=== PATIENT | female | born 1980 | race Hispanic/Latino ===

== ENCOUNTER 2019-09-07 18:15 | Emergency (ER) | payer BC, OTHER ==
[2019-09-07 19:15] LABS: Basophils % 0.2 % (0-1.3); Lymphocytes % 20.1 % (15.3-44.8); MPV 7.3 fL (7.6-11.3); RBC Red Blood Cell Count 3.97 M/uL (3.86-4.86)
[2019-09-07 19:22] LABS: Urine Bacteria 20-50 /HPF (<20); Urine Culture Reflex Order REFLEXED; Urine Mucus 3+ /HPF (NONE SEEN); Urine RBC 20-50 /HPF (NONE SEEN)
[2019-09-07 19:36] LABS: Potassium 3.3 mmol/L (3.5-5.1)
--- NOTE | 2019-09-07 20:49 | RAD REPORT ---
EXAM DESCRIPTION: CT - Abdomen Pelvis W Contrast - 09/07/2019 8:33 pm CLINICAL HISTORY: Abdominal pain/right flank pain COMPARISON: none. TECHNIQUE: Computed axial tomography of the abdomen pelvis was obtained. 100 cc Isovue-300 was admin istered intravenously. Oral contrast was not requested which limits evaluation of bowel. All CT scans are performed using dose optimization technique as appropriate and may include automated exposure control or mA/KV adjustment according to patient size. FINDINGS: Several small low-density areas are present within the right kidney extending to the perip jarod. An additional 2 centimeter low to intermediate density area is present within the midpole of th e right kidney. No hydronephrosis The liver, spleen, pancreas, adrenal and left kidney appear unremarkable. There is no evidence of diverticulitis. IMPRESSION: These findings likely indicate moderate right pyelonephritis. The 2 centimeter abnormality within the right kidney likely additional pyelonephritis less likely a m ass. Followup ultrasound in 1 month is recommended for re-evaluation
[2019-09-07 21:00] LABS: Urine Blood 3+ (NEG); Urine Glucose NEGATIVE (NEG); Urine Protein 1+ (NEG); Urine Specific Gravity 1.025 (1.005-1.030); Urine pH 5.5 (5.0-7.0)
--- NOTE | 2019-09-07 21:04 | ER ---
Nurse's Notes [facility] Name: Laura Pineda Age: 39 yrs Sex: Female : 1980 Arrival Date: 09/07/2019 Time: 18:18 Bed 19 Private MD: Diagnosis: Acute tubulo-interstitial nephritis Presentation: 09/06 18:27 Chief complaint: Intermittent right flank pain, difficulty urinating, nausea, and fever hb x 1 week. TMAX 101.8. Coronavirus screen: Proceed with normal triage. Ebola Screen: No symptoms or risks identified at this time. Initial Sepsis Screen: Does the patient meet any 2 criteria? HR > 90 bpm. Risk Assessment: Do you want to hurt yourself or someone else? Patient reports no desire to harm self or others. Onset of symptoms was September 01, 2019. Care prior to arrival: Medication(s) given: Tylenol, at 1630. 18:27 Method Of Arrival: Ambulatory hb 18:27 Acuity: FALLON 3 hb 21:41 Initial Sepsis Screen: Does the patient have a suspected source of infection? Yes: ll1 Dysuria/Frequency/Urgency/UTI. 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 - Social history:: Smoking status: Patient denies any tobacco usage or history of. Screenin:17 Abuse screen: Denies threats or abuse. Nutritional screening: No deficits noted. ll1 Tuberculosis screening: No symptoms or risk factors identified. Fall Risk IV access (20 points). Total Jose Fall Scale indicates No Risk (0-24 pts). Assessment: 19:15 General: Appears in no apparent distress. Behavior is calm, cooperative. Pain: Denies ll1 pain. Alleviated by rest, Aggravated by increased activity. Neuro: No deficits noted. Cardiovascular: No deficits noted. Respiratory: No deficits noted. GI: Abdomen is flat, Bowel sounds present X 4 quads. Abd is soft and non tender X 4 quads. Reports nausea. : Urine is cloudy, Reports dysuria last week, resolved at this time. Urine appears cloudy. 20:15 Reassessment: Patient appears in no apparent distress at this time. No changes from ll1 previously documented assessment. Patient and/or family updated on plan of care and expected duration. Pain level reassessed. Patient is alert, oriented x 3, equal unlabored respirations, skin warm/dry/pink. 21:15 Reassessment: Patient appears in no apparent distress at this time. No changes from ll1 previously documented assessment. Patient and/or family updated on plan of care and expected duration. Pain level reassessed. Patient is alert, oriented x 3, equal unlabored respirations, skin warm/dry/pink. Vital Signs: 18:27 BP 145 / 99; Pulse 97; Resp 16; Temp 100.2; Pulse Ox 99% ; Weight 56.7 kg; Height 5 ft. hb (152.40 cm); Pain 4/10; 21:43 BP 156 / 96; Pulse 86; Resp 16; Pulse Ox 99% ; Pain 3/10; ll1 18:27 Body Mass Index 24.41 (56.70 kg, 152.40 cm) hb ED Course: 18:18 Patient arrived in ED. as 18:29 Triage completed. hb 18:29 Arm band placed on. hb 18:31 Carmen Holloway FNP-C is PHCP. kb 18:31 Ted Decker MD is Attending Physician. kb 18:48 Whit Woods, DIPESH is Primary Nurse. ll1 19:01 Initial lab(s) drawn, by nh, sent to lab. Inserted saline lock: 20 gauge in right em1 forearm, using aseptic technique. Blood collected. 19:17 Patient has correct armband on for positive identification. Bed in low position. Call ll1 light in reach. Side rails up X 1. 20:34 CT Abd/Pelvis - IV Contrast Only In Process Unspecified. EDMS 21:41 No provider procedures requiring assistance completed. IV discontinued, intact, ll1 bleeding controlled, No redness/swelling at site. Pressure dressing applied. Administered Medications: 21:22 Drug: Rocephin 1 grams Route: IV; Rate: calculated rate; Site: right antecubital; ll1 21:23 Follow up: Response: Adverse reaction, Physician notified; Nausea is increased; RASS: ll1 Alert and Calm (0); IV Status: Completed infusion; IV Intake: 10ml 21:22 Drug: Potassium Chloride 20 mEq Route: PO; ll1 21:23 Follow up: Response: No adverse reaction ll1 21:22 Drug: Zofran (Ondansetron) 4 mg Route: IVP; Site: right antecubital; ll1 21:43 Follow up: Response: No adverse reaction; RASS: Alert and Calm (0) ll1 21:22 Drug: TORadol - Ketorolac 15 mg Route: IVP; Site: right antecubital; ll1 21:42 Follow up: Response: No adverse reaction; RASS: Alert and Calm (0) 1 Intake: 21:23 IV: 10ml; Total: 10ml. 1 Outcome: 21:04 Discharge ordered by . attila 21:42 Discharged to home ambulatory. ll1 21:42 Condition: stable 21:42 Discharge instructions given to patient, Instructed on discharge instructions, follow up and referral plans. medication usage, Demonstrated understanding of instructions, follow-up care, medications, Prescriptions given X 1. 21:45 Patient left the ED. 1 Addendum: 09/10/2019 07:23 Addendum: Culture Results: Positive urine culture. No further action required. Bacteria e b sensitive to prescribed antibiotic. Signatures: Dispatcher [employer] EDMS Carmen Holloway, MARINA-C HELICOPTER ENGINEER-Arcelia Matson Eric em1 Clarissa Rios, RN Marine Perez Lynsay, RN RN 1
--- NOTE | 2019-09-07 21:04 | EDPHYS ---
Physician Documentation [facility] Name: Laura Pineda Age: 39 yrs Sex: Female : 1980 Arrival Date: 09/07/2019 Time: 18:18 Bed 19 Private MD: ED Physician Ted Decker HPI: 09/06 19:13 This 39 yrs old Female presents to ER via Ambulatory with complaints of abd kb pain. 19:13 The patient presents with abdominal pain right lower quadrant. Onset: The kb symptoms/episode began/occurred 8 day(s) ago. The symptoms do not radiate. Associated signs and symptoms: Pertinent positives: fever, Pertinent negatives: nausea, vomiting, and diarrhea. The symptoms are described as constant. Modifying factors: The symptoms are alleviated by nothing, the symptoms are aggravated by nothing. Severity of pain: At its worst the pain was mild moderate in the emergency department the pain is unchanged. The patient has not experienced similar symptoms in the past. The patient has not recently seen a physician. Pt reports right lower lateral abd pain that started last Friday. States it lasted for a few days, stopped, then came back on Friday with fever. Reports urinary frequency at the beginning, but no longer. . 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 - Social history:: Smoking status: Patient denies any tobacco usage or history of. ROS: 19:15 ENT: Negative for injury, pain, and discharge, Neck: Negative for injury, pain, and kb swelling, Cardiovascular: Negative for chest pain, palpitations, and edema, Respiratory: Negative for shortness of breath, cough, wheezing, and pleuritic chest pain, MS/Extremity: Negative for injury and deformity, Skin: Negative for injury, rash, and discoloration, Neuro: Negative for headache, weakness, numbness, tingling, and seizure. 19:15 Constitutional: Positive for fever. 19:15 Abdomen/GI: Positive for abdominal pain, of the anterior aspect of right lateral abdomen and right lower quadrant. Exam: 19:24 Constitutional: This is a well developed, well nourished patient who is awake, alert, kb and in no acute distress. Head/Face: Normocephalic, atraumatic. Neck: Trachea midline, no thyromegaly or masses palpated, and no cervical lymphadenopathy. Supple, full range of motion without nuchal rigidity, or vertebral point tenderness. No Meningismus. Chest/axilla: Normal chest wall appearance and motion. Nontender with no deformity. No lesions are appreciated. Cardiovascular: Regular rate and rhythm with a normal S1 and S2. No gallops, murmurs, or rubs. Normal PMI, no JVD. No pulse deficits. Respiratory: Lungs have equal breath sounds bilaterally, clear to auscultation and percussion. No rales, rhonchi or wheezes noted. No increased work of breathing, no retractions or nasal flaring. Back: No spinal tenderness. No costovertebral tenderness. Full range of motion. Skin: Warm, dry with normal turgor. Normal color with no rashes, no lesions, and no evidence of cellulitis. MS/ Extremity: Pulses equal, no cyanosis. Neurovascular intact. Full, normal range of motion. Neuro: Awake and alert, GCS 15, oriented to person, place, time, and situation. Cranial nerves II-XII grossly intact. Motor strength 5/5 in all extremities. Sensory grossly intact. Cerebellar exam normal. Normal gait. 19:24 Abdomen/GI: Inspection: abdomen appears normal, Bowel sounds: normal, in all quadrants, Palpation: soft, in all quadrants, mild abdominal tenderness, in the anterior aspect of right lateral abdomen. Vital Signs: 18:27 BP 145 / 99; Pulse 97; Resp 16; Temp 100.2; Pulse Ox 99% ; Weight 56.7 kg; Height 5 ft. hb (152.40 cm); Pain 4/10; 21:43 BP 156 / 96; Pulse 86; Resp 16; Pulse Ox 99% ; Pain 3/10; ll1 18:27 Body Mass Index 24.41 (56.70 kg, 152.40 cm) hb MDM: 18:32 Patient medically screened. kb 19:13 Data reviewed: vital signs, nurses notes. Data interpreted: Pulse oximetry: on room air kb is 99 %. Interpretation: normal. 21:03 Counseling: I had a detailed discussion with the patient and/or guardian regarding: the kb historical points, exam findings, and any diagnostic results supporting the discharge/admit diagnosis, lab results, radiology results, the need for outpatient follow up, a family practitioner, to return to the emergency department if symptoms worsen or persist or if there are any questions or concerns that arise at home. 09/06 18:49 Order name: Basic Metabolic Panel; Complete Time: 19:39 kb 09/06 18:49 Order name: CBC with Diff; Complete Time: 19:24 kb 09/06 18:49 Order name: Urine Microscopic Only; Complete Time: 19:24 kb 09/06 18:56 Order name: Urine Dipstick--Ancillary (enter results); Complete Time: 21:02 bd 09/06 18:56 Order name: Urine --Ancillary (enter results); Complete Time: 21:02 bd 09/06 19:24 Order name: Urine Culture EDMS 09/06 18:49 Order name: IV Saline Lock; Complete Time: 18:55 kb 09/06 18:49 Order name: Labs collected and sent; Complete Time: 18:55 kb 09/06 18:49 Order name: Urine Test (obtain specimen); Complete Time: 18:55 kb 09/06 19:40 Order name: CT Abd/Pelvis - IV Contrast Only; Complete Time: 20:58 kb 09/06 18:49 Order name: Urine Dipstick-Ancillary (obtain specimen); Complete Time: 18:55 kb Administered Medications: 21:22 Drug: Rocephin 1 grams Route: IV; Rate: calculated rate; Site: right antecubital; ll1 21:23 Follow up: Response: Adverse reaction, Physician notified; Nausea is increased; RASS: ll1 Alert and Calm (0); IV Status: Completed infusion; IV Intake: 10ml 21:22 Drug: Potassium Chloride 20 mEq Route: PO; ll1 21:23 Follow up: Response: No adverse reaction ll1 21:22 Drug: Zofran (Ondansetron) 4 mg Route: IVP; Site: right antecubital; ll1 21:43 Follow up: Response: No adverse reaction; RASS: Alert and Calm (0) ll1 21:22 Drug: TORadol - Ketorolac 15 mg Route: IVP; Site: right antecubital; ll1 21:42 Follow up: Response: No adverse reaction; RASS: Alert and Calm (0) ll1 Disposition: 09/07/19 21:04 Discharged to Home. Impression: Acute tubulo-interstitial nephritis. - Condition is Stable. - Discharge Instructions: Pyelonephritis, Adult, [id number]. - Prescriptions for cefpodoxime 200 mg Oral Tablet - take 1 tablet by ORAL route every 12 hours with food; 20 tablet. - Medication Reconciliation Form, Thank You Letter, Antibiotic Education, Prescription Opioid Use form. - Follow up: Emergency Department; When: As needed; Reason: Worsening of condition. Follow up: Private Physician; When: 2 - 3 days; Reason: Recheck today's complaints, Continuance of care, Re-evaluation by your physician. Addendum: 09/09/2019 09:58 Co-signature as Attending Physician, Ted Decker MD I agree with the assessment and c piper plan of care. Signatures: Dispatcher [employer] EDMS Carmen Holloway, RESERVATIONS CLERK-C RESERVATIONS CLERK-Ted Parks MD MD cha Baxter, Heather RN RN Whit Woods RN RN ll1 Corrections: (The following items were deleted from the chart) 09/06 21:45 21:04 09/07/2019 21:04 Discharged to Home. Impression: Acute tubulo-interstitial ll1 nephritis. Condition is Stable. Forms are Medication Reconciliation Form, Thank You Letter, Antibiotic Education, Prescription Opioid Use. Follow up: Emergency Department; When: As needed; Reason: Worsening of condition. Follow up: Private Physician; When: 2 - 3 days; Reason: Recheck today's complaints, Continuance of care, Re-evaluation by your physician. kb
[2019-09-07] MEDS ORDERED: POTASSIUM CL SA 10 MEQ TAB PO ONE (21:12)
[2019-09-07] MEDS ORDERED: CEFTRIAXONE/SWI 1gm 1 GM/10 ML SYR ONE (21:12)
[2019-09-07] MEDS ORDERED: KETOROLAC 30 MG/ML INJ ONE (21:19)
[2019-09-07] MEDS ORDERED: ONDANSETRON 4 MG/2 ML VIAL ONE (21:19)
[2019-09-07 21:54] VITALS: BP 156/96; O2SAT 99
[2019-09-07 21:55] VITALS: TEMP 100.2
== END 2019-09-07 21:45 | disposition home or self-care (01) ==
LOC: ER 18:15
DX: N10 Acute pyelonephritis (principal)
CPT/HCPCS: 87088; 85025; 87086; 80048; 36415; 81025; 74177; Q9967; J0696; J2405; 81003; 81015; 87077; 87186; 96374; 96375; 99284